=== PATIENT | female | born 1970 | race Caucasian/White ===

== ENCOUNTER 2018-06-25 17:20 | Emergency (ER) | payer BC, OTHER ==
[2018-06-25 17:47] VITALS: BMI 28.3
--- NOTE | 2018-06-25 17:48 | PDOC ---
Rapid Medical Evaluation Time Seen by Provider: 06/25/18 17:44 Medical Evaluation: Allergies Allergy/AdvReac Type Severity Reaction Status Date / Time No Known Allergies Allergy Verified 06/25/18 17:43 06/25/18 17:44 Pt presents for two days of lower abdominal pain. Pt states that she was evaluated yesterday for her pain at [address] where she had CT scan and UA. States that her urine and CT were normal at [facility]. States that she still has the pain and it has gotten worse. Describes as a stabbing pain. PCP Dr. Zhao Exam: R sided CVA tenderness. TTP of the suprapubic region and RLQ. Orders: Labs, urine, IV Pt to proceed to ED for further evaluation Discharge Disposition - Diagnosis Abdominal pain Qualifiers: Abdominal location: right lower quadrant Qualified Code(s): R10.31 - Right lower quadrant pain - Referrals - Patient Instructions - Post Discharge Activity
[2018-06-25 18:41] LABS: BASO % 0.6 % (0-2.0); EOS % 0.4 % (0-4.5); HEMATOCRIT 32.7 % (32.4-45.2); HEMOGLOBIN 11.4 GM/dL (10.7-15.3); LYMPH % 39.2 % (8-40); MCH 30.6 pg (25.7-33.7); MCHC 34.7 g/dl (32.0-36.0); MEAN CELL VOLUME 88.2 fl (80-96); MEAN PLT VOLUME 8.6 fl (7.5-11.1); MONO % 4.9 % (3.8-10.2); NEUT % 54.9 % (42.8-82.8); PLATELET COUNT 170 K/MM3 (134-434); RBC 3.71 M/mm3 (3.60-5.2); RDW 13.3 % (11.6-15.6); WHITE BLOOD COUNT 4.1 K/mm3 (4.0-10.0)
[2018-06-25 19:04] LABS: URINE APPEARANCE CLEAR; URINE BILIRUBIN NEGATIVE (<2.0 mg/dL); URINE COLOR YELLOW; URINE GLUCOSE (UA) NEGATIVE (NEGATIVE); URINE KETONE TRACE (NEGATIVE); URINE LEUK ESTERASE NEGATIVE (NEGATIVE); URINE NITRITE NEGATIVE (NEGATIVE); URINE PROTEIN NEGATIVE (NEGATIVE); URINE UROBILINOGEN NEGATIVE mg/dL (0.2-1.0)
[2018-06-25 19:05] LABS: HCG,QUALITATIVE URINE Negative
--- NOTE | 2018-06-25 19:37 | PDOC ---
History of Present Illness - General Chief Complaint: Pain, Acute Stated Complaint: PAIN, ACUTE Time Seen by Provider: 06/25/18 17:44 History Source: Patient Exam Limitations: No Limitations - History of Present Illness Initial Comments: 06/25/18 19:31 Pt is a 48yo f with PMH of pernicious anemia, IBS, depression, anxiety presenting to ED with complaints of lower abdominal pain x 2 days associated with burning and pain with urination. Pt said it started yesterday morning, she went to urgent care had an ultrasound done which showed a small L ovarian cyst. She was then sent to the ED at [place]. Pt had UA and CT with contrast done and per patient, everything was normal. Pt is still having pain. Pt says pain is suprapubic, radiates to LLQ and RLQ and to the bilateral flank. She still has dysuria and urgency and says urine is darker. Pain is constant, stabbing worsened with movements, better with lying down, associated with nausea. She also admits to chills and subjective fevers at home. She denies chest pain, sob , vomiting, diarrhea, constipation. She says she had "black stool" today. PMD: Cece PMH: see hpi PSH: cholecystectomy 2013 Meds: Lexapro, Allergies: nkda Past History - Past Medical History Allergies/Adverse Reactions: Allergies Allergy/AdvReac Type Severity Reaction Status Date / Time No Known Allergies Allergy Verified 06/25/18 17:43 Home Medications: Ambulatory Orders Alprazolam 0.5 mg PO BID 06/25/18 Alprazolam 1 mg PO HS 06/25/18 Escitalopram Oxalate [Lexapro -] 10 mg PO DAILY 06/25/18 Simethicone [Gas Relief 80] 80 mg PO TID #60 tab.chew 06/25/18 traZODone HCL [Trazodone HCl] 100 mg PO HS 06/25/18 COPD: No - Immunization History Immunization Up to Date: Yes - Suicide/Smoking/Psychosocial Hx Smoking History: Never smoked Hx Alcohol Use: No Drug/Substance Use Hx: No Substance Use Type: None Review of Systems - Review of Systems Constitutional: Yes: Chills, Fever (subjective), Weakness HEENTM: No: Symptoms Reported Respiratory: No: Cough, Shortness of Breath Cardiac (ROS): Yes: Lightheadedness. No: Chest Pain, Palpitations, Syncope ABD/GI: Yes: See HPI, Nausea, Poor Appetite, Abdominal cramping (lower quadrants ), Tarry Stools. No: Constipated, Diarrhea, Rectal Bleeding, Vomiting : Yes: Burning, Dysuria, Frequency, Urgency. No: Hematuria, Incontinence Musculoskeletal: Yes: See HPI, Back Pain. No: Joint Pain, Muscle Pain, Muscle Weakness, Neck Pain Integumentary: No: Symptoms Reported Neurological: Yes: Headache. No: Numbness, Paresthesia, Tingling, Tremors, Weakness *Physical Exam - Vital Signs Last Vital Signs Temp Pulse Resp BP Pulse Ox 98.6 F 75 16 144/69 98 06/25/18 17:44 06/25/18 17:44 06/25/18 17:44 06/25/18 17:44 06/25/18 17:44 - Physical Exam General Appearance: Yes: Nourished, Appropriately Dressed. No: Apparent Distress HEENT: positive: EOMI, NEHA, Normal ENT Inspection Neck: positive: Trachea midline, Supple. negative: Lymphadenopathy (R), Lymphadenopathy (L) Respiratory/Chest: positive: Lungs Clear, Normal Breath Sounds. negative: Crackles, Rales, Rhonchi, Stridor, Wheezing Cardiovascular: positive: Regular Rhythm, Regular Rate, S1, S2. negative: Edema , JVD, Murmur Vascular Pulses: Carotid (R): 2+, Carotid (L): 2+, Dorsalis-Pedis (R): 2+, Doralis-Pedis (L): 2+ Female Pelvic Exam: positive: normal external exam, CMT, adnexal tenderness. negative: vaginal bleeding Gastrointestinal/Abdominal: positive: Soft, Increased Bowel Sounds, Tenderness ( LLQ, RLQ), Other (negative rosving and psoas sign). negative: Distended, Guarding, Rebound, Hernia, Mass Rectal Exam: positive: heme negative stool, normal rectal tone Musculoskeletal: positive: CVA Tenderness (R), CVA Tenderness (L). negative: Decreased Range of Motion, Muscle Spasm, Vertebral Tenderness Extremity: positive: Normal Capillary Refill, Pelvis Stable. negative: Pedal Edema, Swelling, Calf Tenderness Integumentary: positive: Normal Color, Dry, Warm Neurologic: positive: proposal writer II-XII NML intact, Fully Oriented, Alert, Normal Mood/ Affect, Normal Response, Motor Strength 12/19 ED Treatment Course - LABORATORY CBC & Chemistry Diagram: 06/25/18 18:20 06/25/18 18:20 - ADDITIONAL ORDERS Additional order review: Laboratory Results 06/25/18 06/25/18 18:30 18:20 Lipase Cancelled Urine Color Yellow Urine Appearance Clear Urine pH 5.0 Ur Specific Chapman 1.032 Urine Protein Negative Urine Glucose (UA) Negative Urine Ketones Trace H Urine Blood Negative Urine Nitrite Negative Urine Bilirubin Negative Urine Urobilinogen Negative Ur Leukocyte Esterase Negative Urine HCG, Qual Negative 06/25/18 18:20 RBC 3.71 MCV 88.2 MCHC 34.7 RDW 13.3 MPV 8.6 Neutrophils % 54.9 Lymphocytes % 39.2 Monocytes % 4.9 Eosinophils % 0.4 Basophils % 0.6 Medical Decision Making - Medical Decision Making Pt is a 48yo f with PMH of pernicious anemia, IBS, depression, anxiety presenting to ED with complaints of lower abdominal pain x 2 days associated with burning and pain with urination. Pt said it started yesterday morning, she went to urgent care had an ultrasound done which showed a small L ovarian cyst. She was then sent to the ED at [place]. Pt had UA and CT with contrast done and per patient, everything was normal. Vitals; Selected Entries 06/25/18 17:44 Temperature 98.6 F Pulse Rate 75 Respiratory 16 Rate Blood Pressure 144/69 Blood Pressure 94 Mean O2 Sat by Pulse 98 Oximetry (%) PE: ttp in LLQ and RLQ. negative rosving and psoas signs. CMT and adnexal tenderness, no discharge. heme negative stool DDx: appendicitis, ovarian torsion, TOA, diverticulitis, colitis, neprholithiasis, uti, pyelonephritis -low suspicon for infectious process given pt is afebrile, not having diarrhea or vomiting. Had CT, TVUS yesterday with no acute findings. Makes suspicion for ovarian causes and appendicitis, abdominal pathology low. No need for imaging today. Will give Maalox and simethicone. Tylenol for pain. Labs wnl. Pt had imaging done yesterday, no need to have new imaging today if imaging was normal yesterday. can be dc home. Advised pt that nothing dangerous is happening. Recommended pt follow up with GI. Pt given strict return precautions *DC/Admit/Observation/Transfer Diagnosis at time of Disposition: Abdominal pain Qualifiers: Abdominal location: right lower quadrant Qualified Code(s): R10.31 - Right lower quadrant pain - Discharge Dispostion Disposition: HOME Condition at time of disposition: Good Decision to Admit order: No - Prescriptions Prescriptions: Simethicone [Gas Relief 80] 80 mg PO TID #60 tab.chew - Referrals Referrals: Jovanni Zhao MD [Primary Care Provider] - Lisa Crowell MD [Staff Physician] - - Patient Instructions Printed Discharge Instructions: DI for Abdominal Pain-Adult Additional Instructions: You were seen here today for abdominal pain. All of your tests were normal. Since you had a CT scan and ultrasound done yesterday, there is no need for a new one done today. We can safely say that there is nothing dangerous happening. I recommend you follow up with your primary care doctor or your GI doctor for further management and evaluation of your symptoms. If you do not have a GI doctor, you can see Dr. Crowell . Drink lots of fluids and you can take Maalox over the counter for symptoms as needed. As always you can take extra strength Tylenol for pain. Come back to the emergency room if your pain gets worse, you start vomiting, you develop fever, you are unable to have bowel movements or pass gas, you notice blood in the stool, you have vaginal bleeding or discharge, or if any new concerning symptom develops. Thank you - Post Discharge Activity
--- NOTE | 2018-06-25 19:39 | PDOC ---
Attending Attestation - HPI HPI: 06/25/18 20:20 The patient is a 48 year old female with a significant PMH of gallstones and gallbladder removal who presents to the emergency department with abdominal pain for 2 days. The patient reports that she has been experiencing this severe lower abdominal pain since yesterday afternoon after work. She states that she went to urgent care and [facility] yesterday by which she had a normal CT done. The patient states that her abdominal pain radiates to the upper right quadrant and to her bilateral lower back. She states that it feels like an intense stabbing pain that is worsened with walking and movement. She denies any irregular bowel movements but, endorses some dark black colored stool this morning. The patient also reports some decrease in appetite by which she has only had a croissant and mashed potatoes between yesterday and today. The patient endorses some shivers and chills as well. She denies any other symptoms. She denies any fever, chills, nausea, vomiting, diarrhea, constipation or urinary symptoms. She denies any chest pain shortness of breath , headache or dizziness. The patient denies any other complaints. PCP: Dr. Zhao - Physicial Exam PE: 06/25/18 20:20 GENERAL: Awake, alert, and fully oriented, in no acute distress HEAD: No signs of trauma EYES: PERRLA, EOMI, sclera anicteric, conjunctiva clear ENT: Auricles normal inspection, hearing grossly normal, nares patent, oropharynx clear without exudates. Moist mucosa NECK: Normal ROM, supple, no lymphadenopathy, JVD, or masses LUNGS: Breath sounds equal, clear to auscultation bilaterally. No wheezes, and no crackles HEART: Regular rate and rhythm, normal S1 and S2, no murmurs, rubs or gallops ABDOMEN: (+)belly gassy in all 4 quadrants. Minimal tenderness with palpation. Soft,No guarding, no rebound. No masses EXTREMITIES: Normal range of motion, no edema. No clubbing or cyanosis. No cords, erythema, or tenderness NEUROLOGICAL: Cranial nerves II through XII grossly intact. Normal speech, normal gait SKIN: Warm, Dry, normal turgor, no rashes or lesions noted. Documentation prepared by Raimundo Lei, acting as medical record clerk for Susannah Huber MD. 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 She has abdominal pain that moves and comes and goes whe she walks and moves about. She had shivers and chills earlier - no fever though. Pt has normal bowel movements and urination, though she was complaining of dysuria earlier. Pt has a hx of cholecystectomy. She is concerned because her stools are black. 06/25/18 20:21 Labs normal; stool guaiac negative. UA normal. Pt has gas pain. She will be asked to take a probiotic and simethicone. <Susannah Huber - Last Filed: 06/25/18 20:25>
[2018-06-25] MEDS ORDERED: MAG HYDROX/AL HYDROX/SIMETH 30 ML UNIT-DOSE CUP PO ONE (19:47)
[2018-06-25] MEDS ORDERED: SIMETHICONE 40 MG/0.6 ML BOTTLE PO ONE (19:47)
[2018-06-25] MEDS ORDERED: MAG HYDROX/AL HYDROX/SIMETH 30 ML UNIT-DOSE CUP ONE (20:07)
[2018-06-25 20:17] LABS: ALBUMIN 3.7 g/dl (3.4-5.0); ALK PHOS 88 U/L (45-117); BILIRUBIN,TOTAL 0.3 mg/dL (0.2-1); BLOOD UREA NITROGEN 13 mg/dL (7-18); CALCIUM 8.2 mg/dL (8.5-10.1); GLUCOSE,RANDOM 77 mg/dL (74-106); LIPASE 117 U/L (73-393); POTASSIUM 4.2 mmol/L (3.5-5.1); SGOT/AST 16 U/L (15-37); SGPT/ALT 26 U/L (13-61); SODIUM 142 mmol/L (136-145); TOT PROT 6.4 g/dl (6.4-8.2)
[2018-06-25 20:18] LABS: ANION GAP 9 MMOL/L (8-16); CHLORIDE 108 mmol/L (98-107); CO2 24 mmol/L (22-28); CREATININE 0.8 mg/dL (0.55-1.3)
[2018-06-25 20:29] VITALS: BP 122/73; PULSE 72
[2018-06-25 20:32] VITALS: TEMP 98.5
[2018-06-25] MEDS ORDERED: ACETAMINOPHEN 500 MG TABLET (FP) PO ONE (20:44)
[2018-06-25] MEDS ORDERED: ACETAMINOPHEN 325 MG TABLET (FP) ONE (20:49)
== END 2018-06-25 20:57 | disposition home or self-care (01) ==
LOC: JER 17:20
DX: R10.31 Right lower quadrant pain (principal); R14.1 Gas pain; Z87.19 Personal history of other diseases of the digestive system; F41.8 Other specified anxiety disorders; Z86.2 Personal history of diseases of the blood and blood-forming organs and certain disorders involving the immune mechanism
CPT/HCPCS: 36415; 80053; 81003; 82272; 83690; 84703; 85025; 87086; 99284-25

== ENCOUNTER → 2020-03-12 | Day surgery (SDC) | payer BC ==
--- NOTE | 2020-03-13 18:06 | PATH ---
Cytology Non-Gynecological Report Patient Name: HIWOT BRISCOE [facility]. Rec. #: [id number] /Age/Gender: 1970 (Age: 50) / F Account: [id number] Location: RADIOLOGY INTER Taken: 03/12/2020 Received: 03/12/2020 Reported: 03/13/2020 Physicians: Loyd Velez M.D. Specimen(s) Received LEFT THYROID FNA Clinical History Left thyroid nodule 1.2 x 0.64 x 1.03cm Final Diagnosis THYROID, LEFT, FINE NEEDLE ASPIRATION: SATISFACTORY FOR EVALUATION BETHESDA CLASS II: BENIGN SMALL FOLLICULAR CELLS AND COLLOID PRESENT, CONSISTENT WITH A BENIGN FOLLICULAR NODULE. Electronically Signed Julian France M.D. Gross Description Received are eight direct smears, four of which are air-dried and Diff-Quik stained, and four of which are alcohol fixed and Pap stained. Also received is 20 ml of bloody formalin from which one cellblock is prepared.
== END | disposition home or self-care (01) ==
LOC: JRADIR 09:24
PROVIDERS: ATTEND Otolaryngology
PROC: 0G9G3ZX Drainage of Left Thyroid Gland Lobe, Percutaneous Approach, Diagnostic (ICD-10-PCS; principal; 2020-03-12)
DX: E04.1 Nontoxic single thyroid nodule (principal)
CPT/HCPCS: 76942; 88173; 88305-TC

== ENCOUNTER 2023-09-15 16:19 | Emergency (ER) | payer BC ==
[2023-09-15 16:36] VITALS: BP 124/85; PULSE 76; RESP 18; TEMP 97.8; BMI 30.9
[2023-09-15] MEDS ORDERED: SODIUM CHLORIDE 0.9% 1000 ML INFUS.BAG IV ONE (16:43)
[2023-09-15] MEDS ORDERED: ACETAMINOPHEN 1000 MG/100 ML BAG IVPB ONE (16:43)
[2023-09-15] MEDS ORDERED: ACETAMINOPHEN INJECTION 100 ML IVPB ONE (16:52)
[2023-09-15] MEDS ORDERED: CEFTRIAXONE 1 GM in DEXTROSE 5%-WATER - 100 ML IVPB ONE (17:01)
[2023-09-15] MEDS ORDERED: cefTRIAXone SODIUM 1 GM VIAL ONE (17:03)
[2023-09-15 17:27] LABS: HEMATOCRIT 37.2 % (32.4-45.2); HEMOGLOBIN 12.9 G/dL (10.7-15.3); MCH 31.4 pg (25.7-33.7); MCHC 34.7 g/dl (32.0-36.0); MEAN CELL VOLUME 90.7 fl (80-96); MEAN PLT VOLUME 7.6 fl (7.5-11.1); PLATELET COUNT 233.1 10^3/uL (134-434); RDW 13.6 % (11.6-15.6); WHITE BLOOD COUNT 5.7 10^3/uL (4.0-10.8)
[2023-09-15 17:51] LABS: ALBUMIN 4.5 g/dl (3.4-5.0); BILIRUBIN,TOTAL 0.6 mg/dl (0.2-1); CALCIUM 9.2 mg/dl (8.5-10.1); CREATININE 0.8 mg/dl (0.6-1.3); POTASSIUM 3.9 mmol/L (3.5-5.1); TOT PROT 6.7 g/dl (6.4-8.2)
== END 2023-09-15 19:13 | disposition home or self-care (01) ==
LOC: FER 16:19
PROC: 3E03329 Introduction of Other Anti-infective into Peripheral Vein, Percutaneous Approach (ICD-10-PCS; principal; 2023-09-15)
PROC: 3E033GC Introduction of Other Therapeutic Substance into Peripheral Vein, Percutaneous Approach (ICD-10-PCS; 2023-09-15)
DX: R10.33 Periumbilical pain (principal); M54.9 Dorsalgia, unspecified; R30.0 Dysuria; N30.90 Cystitis, unspecified without hematuria
CPT/HCPCS: 36415; 74176-TC; 80053; 81003; 85027; 87086; 99284-25; J0131

== ENCOUNTER 2023-10-16 16:33 | Emergency (ER) | payer BC ==
[2023-10-16 16:54] VITALS: TEMP 98.4; BMI 32.5
[2023-10-16] MEDS: FAMOTIDINE 20 MG/50 ML IVPB 20 MG in PREMIX 50 IVPB ONE (17:50)
[2023-10-16] MEDS: diazePAM 5 MG TABLET PO ONE (17:50)
[2023-10-16] MEDS: SODIUM CHLORIDE 1,000 ML IV ONE (17:55)
[2023-10-16] MEDS ORDERED: ACETAMINOPHEN INJECTION 100 ML IVPB ONE (17:56)
[2023-10-16] MEDS ORDERED: FAMOTIDINE 20 MG/50 ML IVPB 20 MG/50 ML MG IVPB ONE (17:56)
[2023-10-16] MEDS ORDERED: diazePAM 5 MG TABLET ONE (17:57)
[2023-10-16 18:01] LABS: HEMATOCRIT 36.3 % (32.4-45.2); HEMOGLOBIN 12.5 G/dL (10.7-15.3); MCH 31.2 pg (25.7-33.7); MCHC 34.3 g/dl (32.0-36.0); MEAN CELL VOLUME 90.9 fl (80-96); MEAN PLT VOLUME 7.6 fl (7.5-11.1); PLATELET COUNT 237.1 10^3/uL (134-434); RBC 3.99 10^6/uL (3.60-5.2); RDW 14.1 % (11.6-15.6); WHITE BLOOD COUNT 5.3 10^3/uL (4.0-10.8)
[2023-10-16] MEDS: ACETAMINOPHEN 1000 MG/100 ML BAG IVPB ONE (18:06)
[2023-10-16 18:17] LABS: ALBUMIN 4.6 g/dl (3.4-5.0); BILIRUBIN,TOTAL 0.5 mg/dl (0.2-1); CALCIUM 9.1 mg/dl (8.5-10.1); CREATININE 0.8 mg/dl (0.6-1.3); POTASSIUM 3.8 mmol/L (3.5-5.1); TOT PROT 6.6 g/dl (6.4-8.2)
[2023-10-16] MEDS: ACETAMINOPHEN 500 MG TABLET (FP) PO ONE (18:51)
[2023-10-16 20:43] VITALS: BP 121/69; PULSE 67; RESP 19
== END 2023-10-16 21:17 | disposition home or self-care (01) ==
LOC: FER 16:33
PROC: 3E033GC Introduction of Other Therapeutic Substance into Peripheral Vein, Percutaneous Approach (ICD-10-PCS; principal; 2023-10-16)
PROC: 3E033NZ Introduction of Analgesics, Hypnotics, Sedatives into Peripheral Vein, Percutaneous Approach (ICD-10-PCS; 2023-10-16)
DX: M54.6 Pain in thoracic spine (principal); R20.2 Paresthesia of skin; R11.0 Nausea; R10.10 Upper abdominal pain, unspecified; M79.10 Myalgia, unspecified site
CPT/HCPCS: 36415; 74176-TC; 80053; 81003; 82272; 84484; 85027; 99284-25; J0131

== ENCOUNTER 2023-11-19 15:48 | Emergency (ER) | payer BC ==
[2023-11-19 16:11] VITALS: BP 119/73; PULSE 80; RESP 18; TEMP 98.7; BMI 32.5
[2023-11-19 17:34] LABS: HEMATOCRIT 35.9 % (32.4-45.2); HEMOGLOBIN 12.2 G/dL (10.7-15.3); MCH 30.3 pg (25.7-33.7); MCHC 33.9 g/dl (32.0-36.0); MEAN CELL VOLUME 89.6 fl (80-96); MEAN PLT VOLUME 7.6 fl (7.5-11.1); PLATELET COUNT 191.7 10^3/uL (134-434); RBC 4.01 10^6/uL (3.60-5.2); RDW 13.9 % (11.6-15.6); WHITE BLOOD COUNT 5.4 10^3/uL (4.0-10.8)
[2023-11-19 17:40] LABS: PLATELET ESTIMATE ADEQUATE
[2023-11-19 17:54] LABS: ALBUMIN 4.5 g/dl (3.4-5.0); BILIRUBIN,TOTAL 0.4 mg/dl (0.2-1); CALCIUM 9.3 mg/dl (8.5-10.1); CREATININE 0.8 mg/dl (0.6-1.3); MAGNESIUM 1.9 mg/dL (1.8-2.4); POTASSIUM 3.8 mmol/L (3.5-5.1); TOT PROT 6.8 g/dl (6.4-8.2)
[2023-11-19 17:57] LABS: THROAT:GRP A STREP NOT DETECTED (NOTDETECTED)
== END 2023-11-19 19:32 | disposition home or self-care (01) ==
LOC: FER 15:48
DX: U07.1 COVID-19 (principal); R05.9 Cough, unspecified; M79.10 Myalgia, unspecified site; R09.81 Nasal congestion; J02.9 Acute pharyngitis, unspecified
CPT/HCPCS: 0241U-QW; 36415; 71045-TC-FY; 80053; 83735; 85025; 87651; 99284-25

== ENCOUNTER 2023-12-12 16:48 | Emergency (ER) | payer BC ==
[2023-12-12 16:59] VITALS: BP 118/79; PULSE 82; RESP 16; TEMP 98.3; BMI 32.5
[2023-12-12] MEDS: SODIUM CHLORIDE 1,000 ML IV STA (17:10)
[2023-12-12] MEDS ORDERED: ONDANSETRON 4 MG/2 ML VIAL ONE (17:12)
[2023-12-12] MEDS ORDERED: morphine SULFATE 4 MG/ML VIAL ONE ×2 (17:12→19:32)
[2023-12-12] MEDS: ONDANSETRON 4 MG/2 ML VIAL IVPUSH ONE (17:12)
[2023-12-12] MEDS: morphine CARPU-JECT 4 MG/1 ML DISP.SYRIN IVPUSH ONE ×2 (17:19→19:38)
[2023-12-12 17:34] LABS: HEMATOCRIT 38.2 % (32.4-45.2); HEMOGLOBIN 12.9 G/dL (10.7-15.3); MCH 30.4 pg (25.7-33.7); MCHC 33.8 g/dl (32.0-36.0); MEAN CELL VOLUME 90.1 fl (80-96); MEAN PLT VOLUME 7.6 fl (7.5-11.1); PLATELET COUNT 239.2 10^3/uL (134-434); PROTHROMBIN TIME (PATIENT) 11.4 SEC (9.7-13.0); RBC 4.24 10^6/uL (3.60-5.2); RDW 14.4 % (11.6-15.6); WHITE BLOOD COUNT 4.7 10^3/uL (4.0-10.8)
[2023-12-12 17:45] LABS: ALBUMIN 4.5 g/dl (3.4-5.0); BILIRUBIN,TOTAL 0.4 mg/dl (0.2-1); CALCIUM 9.7 mg/dl (8.5-10.1); CREATININE 0.7 mg/dl (0.6-1.3); POTASSIUM 3.7 mmol/L (3.5-5.1); TOT PROT 6.9 g/dl (6.4-8.2)
== END 2023-12-12 20:34 | disposition home or self-care (01) ==
LOC: FER 16:48
PROC: 3E033GC Introduction of Other Therapeutic Substance into Peripheral Vein, Percutaneous Approach (ICD-10-PCS; principal; 2023-12-12)
PROC: 3E033NZ Introduction of Analgesics, Hypnotics, Sedatives into Peripheral Vein, Percutaneous Approach (ICD-10-PCS; 2023-12-12)
PROC: 3E033NZ Introduction of Analgesics, Hypnotics, Sedatives into Peripheral Vein, Percutaneous Approach (ICD-10-PCS; 2023-12-12)
PROC: 3E0337Z Introduction of Electrolytic and Water Balance Substance into Peripheral Vein, Percutaneous Approach (ICD-10-PCS; 2023-12-12)
DX: R10.11 Right upper quadrant pain (principal)
CPT/HCPCS: 36415; 74176-TC; 80053; 81003; 83690; 85027; 85610; 86850; 86900; 86901; 99284-25

== ENCOUNTER 2023-12-25 15:59 | Emergency (ER) | payer BC ==
[2023-12-25 16:18] VITALS: BP 117/77; PULSE 70; RESP 18; TEMP 99.1; BMI 32.5
[2023-12-25] MEDS ORDERED: ACETAMINOPHEN 500 MG TABLET (FP) ONE (17:23)
[2023-12-25] MEDS: ACETAMINOPHEN 500 MG TABLET (FP) PO ONE (17:27)
== END 2023-12-25 18:10 | disposition home or self-care (01) ==
LOC: FER 15:59
DX: R05.9 Cough, unspecified (principal); J06.9 Acute upper respiratory infection, unspecified; R07.81 Pleurodynia; R11.0 Nausea; R53.83 Other fatigue; Z20.822 Contact with and (suspected) exposure to COVID-19
CPT/HCPCS: 0241U-QW; 71046-TC-FY; 93005; 99285-25

== ENCOUNTER 2024-05-27 15:57 | Emergency (ER) | payer BC ==
[2024-05-27 16:20] VITALS: BP 128/70; PULSE 83; RESP 16; TEMP 99.5; BMI 30.9
[2024-05-27] MEDS ORDERED: ONDANSETRON *ODT* 4 MG TABLET ONE (17:51)
[2024-05-27] MEDS ORDERED: KETOROLAC TROMETHAMINE 15 MG/ML VIAL ONE (17:51)
[2024-05-27] MEDS: ONDANSETRON *ODT* 4 MG TABLET SL ONE (18:00)
[2024-05-27] MEDS: KETOROLAC TROMETHAMINE 15 MG/ML VIAL IVPUSH ONE (18:05)
[2024-05-27 18:29] LABS: INR 1.01 (0.83-1.09); PROTHROMBIN TIME (PATIENT) 11.5 SEC (9.7-13.0)
[2024-05-27 18:31] LABS: ACTIVATED PTT 28.7 SECONDS (25.2-36.5)
[2024-05-27 18:32] LABS: HEMATOCRIT 38.4 % (32.4-45.2); HEMOGLOBIN 13.1 G/dL (10.7-15.3); MCH 31.8 pg (25.7-33.7); MCHC 34.2 g/dl (32.0-36.0); MEAN CELL VOLUME 92.9 fl (80-96); MEAN PLT VOLUME 7.7 fl (7.5-11.1); PLATELET COUNT 258.9 10^3/uL (134-434); RBC 4.13 10^6/uL (3.60-5.2); RDW 13.6 % (11.6-15.6); WHITE BLOOD COUNT 6.7 10^3/uL (4.0-10.8)
[2024-05-27 18:38] LABS: ALBUMIN 4.7 g/dl (3.4-5.0); BILIRUBIN,TOTAL 0.4 mg/dl (0.2-1); CALCIUM 9.7 mg/dl (8.5-10.1); CREATININE 0.7 mg/dl (0.6-1.3); POTASSIUM 3.8 mmol/L (3.5-5.1); TOT PROT 6.8 g/dl (6.4-8.2)
[2024-05-27 18:46] LABS: PLATELET ESTIMATE ADEQUATE
[2024-05-27 19:27] LABS: N-TERMINAL BNP 31.2 pg/ml (5-125)
[2024-05-27] MEDS ORDERED: morphine SULFATE 4 MG/ML VIAL ONE (20:26)
[2024-05-27] MEDS: morphine CARPU-JECT 2 MG/1 ML DISP.SYRIN IVPUSH ONE (20:30)
[2024-05-27] MEDS ORDERED: MAGNESIUM CITRATE 300 ML BOTTLE ONE (20:33)
[2024-05-27] MEDS: MAGNESIUM CITRATE 300 ML BOTTLE PO ONE (20:41)
== END 2024-05-27 20:45 | disposition home or self-care (01) ==
LOC: FER 15:57
PROC: 3E0333Z Introduction of Anti-inflammatory into Peripheral Vein, Percutaneous Approach (ICD-10-PCS; principal; 2024-05-27)
PROC: 3E033NZ Introduction of Analgesics, Hypnotics, Sedatives into Peripheral Vein, Percutaneous Approach (ICD-10-PCS; 2024-05-27)
DX: R10.11 Right upper quadrant pain (principal); K59.00 Constipation, unspecified; R11.0 Nausea; Z20.822 Contact with and (suspected) exposure to COVID-19
CPT/HCPCS: 0241U-QW; 36415; 71046-TC-FY; 74176-TC; 80053; 83605; 83690; 83880; 84484; 85027; 85610; 85730; 86140; 86850; 86900; 86901; 93005; 99285-25; Q0162